=== PATIENT | female | born 1960 | race Caucasian/White ===

== ENCOUNTER 2022-03-05 10:24 | Outpatient (CLI) | payer BC, SELFPAY | END 2022-03-05 10:25 | disposition home or self-care (01) | LOC: ANHSURGERY 10:28 | PROVIDERS: PCP Family Medicine Sports Medicine; Visit Provider Urology | DX: N39.3 Stress incontinence (female) (male) (principal); Z01.818 Encounter for other preprocedural examination | CPT/HCPCS: 87086 ==

== ENCOUNTER 2022-03-09 02:14 | Day surgery (SDC) | payer BC, OTHER, SELFPAY ==
[2022-03-01 09:08] VITALS: BMI 23.6
--- NOTE | 2022-03-01 09:17 | PC.NURSE ---
Report to the Outpatient Waiting Room, entrance under the green pavilion located off [facility], at time 7:45 on date 03/09/22. OR Time: 9:45. - You and your visitor will be asked a series of questions to screen for COVID 19 for your protection. - Only one visitor is allowed at this time. - The patient visitor is requested to leave or wait in car when not with patient. - A mask is required within the hospital. Patients may have clear liquids (water, carbonated beverages, clear teas, apple juice) until 3 hours prior to surgery (6:45) with a maximum of 20 ounces. - No food from midnight until time of surgery Take the following medications with a SIP of water the morning of surgery: NONE Medications to discontinue per physician: VITAMINS/SUPPLEMENTS, ALEVE Date to take last dose: 03/01/22 (PER DR. MCCORD) Please no make-up, nail croatian, hairspray, perfume, deodorant, or body powder the day of surgery. No jewelry (including any body piercings) or valuables the day of surgery, leave them at home. Please take a shower or bath the night before, or the morning of, surgery with an antibacterial soap. Wear comfortable, loose fitting clothing. - Jewelry must be removed prior to entering the operating room. Rings and piercings that are not removed may be cut off. - The hospital will not accept responsibility for valuables. - Please leave all valuables, including medications, at home the day of surgery. If you are going home after surgery, a licensed charter coach driver must drive you home. - NO public transportation without another adult. - We recommend that an adult stay with you for 24 hours following discharge. - We also recommend that you do not drive, make important decision, drink alcoholic beverages, or take any drugs that were not prescribed by your health care provider for at least 24 hours after your discharge time. Follow any additional instructions given to you from your surgeon. If you or anyone in your household have experienced Covid symptoms in the past week, please notify your surgeon or the nurse liaison at the phone number below for possible testing. Telephone instructions given to PT RIGOBERTO MORRISSEY and asked if any additional questions and then verbalized understanding. Patient advised to call surgeon office or pre surgery nurse liaison [phone] if any additional questions.
--- NOTE | 2022-03-03 11:58 | PM.IMHP ---
H&P: HPI History of Present Illness Date/Time: 03/03/22 11:58 Chief Complaint: stress incontinence Narrative: 61-year-old with bothersome stress incontinence. She desires surgical correction. Review of Systems Review of Systems: All systems reviewed & are unremarkable except as noted in HPI and below PMFSH Social History Social History Smoking status: Never smoker Alcohol intake: current Drinks per week: 4 Substance use: current Substance use type: marijuana Other substance usage details: CBD CREAM Spiritual care concerns: No Meds Home Medications and Allergies Home Medications Medication Instructions Recorded Confirmed Type magnesium 250 mg tablet 250 mg PO DAILY 03/01/22 03/01/22 History naproxen sodium 220 mg tablet 220 mg PO BID PRN Pain 03/01/22 03/01/22 History (Aleve) vitamin B12 0.5 mg-folic acid 1 mg 1 tablet PO DAILY 03/01/22 03/01/22 History tablet Allergies Allergy/AdvReac Type Severity Reaction Status Date / Time No Known Allergies Allergy Verified 03/01/22 09:06 Exam Narrative: Alert and oriented x3 normal breathing minimal cystocele positive urethral mobility Assessment and Plan Assessment and plan (1) BRENT (stress urinary incontinence, female): Code(s): N39.3 - Stress incontinence (female) (male) Status: Acute Assessment and Plan: plan for urethral sling. Understands risks of bleeding, infection, damage to the bladder or urethra, lack of efficacy, voiding dysfunction including incontinence and retention, need for ancillary procedures, mesh exposure, hernia she agrees to proceed
--- NOTE | 2022-03-09 07:14 | WPDHPUPDATE1 ---
History and Physical Update Update Date/Time: 03/09/22 07:14 History and Physical has been reviewed, including an updated exam of the patient. There are NO changes in the patient's condition. Risks, benefits, and alternatives have been discussed and questions answered. Patient agrees to proceed with procedure.
[2022-03-09 08:05] VITALS: BP 125/85; PULSE 65; RESP 16; TEMP 36.6; O2SAT 98
[2022-03-09] MEDS: LACTATED RINGERS 1,000 ML 30 ML IV CONT (08:26)
--- NOTE | 2022-03-09 08:27 | P.PNAN_ITS ---
Anes - Initial Pre Proc Eval Procedure: Operation Date: 03/09/22 09:45 Proposed Procedures p Urethral Sling - Ignacio Elliott MD Date/Time: 03/09/22 08:27 Surgeon: Ignacio Elliott MD Pre Op Diagnosis: stress incontinence Patient Data Age: 61 Gender: F Height: 1.63 m Weight: 61.7 kg Last Vital Signs Temp 36.6 C 03/09/22 08:05 Pulse 65 03/09/22 08:05 Resp 16 03/09/22 08:05 BP 125/85 03/09/22 08:05 Pulse Ox 98 03/09/22 08:05 O2 Del Method Room Air 03/09/22 08:05 Allergies Allergy/AdvReac Type Severity Reaction Status Date / Time No Known Allergies Allergy Verified 03/09/22 08:13 Home Medications Medication Instructions Recorded Confirmed Type magnesium 250 mg tablet 250 mg PO DAILY 03/01/22 03/09/22 History naproxen sodium 220 mg tablet 220 mg PO BID PRN Pain 03/01/22 03/09/22 History (Aleve) vitamin B12 0.5 mg-folic acid 1 mg 1 tablet PO DAILY 03/01/22 03/09/22 History tablet Patient hx anesthesia problems: other (decreased bp) Family hx anesthesia problems: none Results Review: All pre-operative results and documents have been reviewed as part of the pre- operative evaluation. [facility] Past Medical History Medical History Arthritis Social History Social History Smoking status: Never smoker Alcohol intake: current Drinks per week: 4 Substance use: current Substance use type: marijuana Other substance usage details: CBD CREAM Living arrangements: with family Spiritual care concerns: No Anes - Eval Final PreProcedure Day of Procedure 03/09/22 08:27 Patient weight: normal Heart: regular rate and rhythm Lungs: clear to auscultation Airway: Mallampati scale class II Neurological: alert and oriented Last oral intake: >/= 8 hours ASA classification: II Emergent: no Anesthetic plan: proceed Anesthesia type and monitoring: general GIVS and standard monitoring Results Review: All pre-operative results and documents have been reviewed as part of the pre- operative evaluation. Informed Consent: The patient's anesthetic plan and its attendant risks and benefits were discussed with the patient/family/POA. Questions were solicited and answers provided to the satisfaction of the patient/family/POA.
[2022-03-09] MEDS: ceFAZolin 2 GM/D5W 50 ML 2 GM/50 ML BAG IVPB (09:55)
[2022-03-09] MEDS: LIDO 2%/EPINEPHRINE 1:100,000 20 ML VIAL 10 ML INFILTRATE (10:08)
[2022-03-09 10:27] VITALS: BP 116/72; PULSE 64; RESP 10; O2SAT 94
--- NOTE | 2022-03-09 10:43 | W.PM.PROC2 ---
Procedure Note - Detailed Date of Procedure 03/09/22 Pre-op Diagnosis stress incontinence Post-op Diagnosis Same Procedure Performed mid urethral sling cystoscopy Surgeon Ignacio Elliott MD Anesthesia MAC Indications This is a female with confirm stress urinary incontinence. She desires surgical correction. She understands the risks of bleeding, infection, injury to the urinary tract, vaginal mesh extrusion, urinary tract mesh erosion, obstructive voiding requiring a secondary procedure, hip and leg pain, dyspareunia, inability to improve overactive bladder symptoms. She agrees to proceed. Description of Procedure She was correctly identified. Informed consent obtained. She was brought the operating room. She was given appropriate anesthesia. She was given appropriate perioperative antibiotics. A time-out performed. I marked out the site of the inner thigh incisions. I anesthetized the skin and made those incisions. I anesthetized the anterior vaginal wall over the mid urethra. I made a 1 cm incision. I dissected out laterally taking great care not to injure the refilled vaginal wall. I passed the helical trocars. First on the left. Then on the right. I did this from the thigh incision towards the vaginal incision. The sling was connected to the trocars and brought out through the thigh incision. I tensioned the sling appropriately. I cut and the plastic sheaths. I then closed the incision with 2 0 Vicryl. On cystoscopy there is no tumors or surgical artifact. There was no surgical artifact in the urethra. I cut the excess sling material. Close incisions with glue. She was awakened and transferred to the PACU in stable condition. Implants Urethral sling Estimated Blood Loss -2.0 Drains No Packing No Pathology None sent Complications No immediate complications Condition Stable Disposition PACU
[2022-03-09 10:55] VITALS: BP 107/73; PULSE 60; RESP 16; O2SAT 100
[2022-03-09 11:25] VITALS: BP 119/93; PULSE 58; RESP 16
== END 2022-03-09 11:33 | disposition home or self-care (01) ==
PROVIDERS: PCP Family Medicine Sports Medicine; Visit Provider Urology
PROC: (CPT 57288; principal; 2022-03-09 09:45)
DX: N39.3 Stress incontinence (female) (male) (principal)
CPT/HCPCS: 57288; A9270; C1771; J0690; J1100; J2250; J2405; J2704; J3010; J7030; J7120